=== PATIENT | female | born 1990 | race Caucasian/White ===

== ENCOUNTER 2017-02-05 10:26 | Emergency (ER) | payer SELFPAY ==
[2017-02-05 11:24] VITALS: BP 128/77
--- NOTE | 2017-02-05 12:20 | UC ---
Complaint Female HPI - HPI Summary HPI Summary: 26 female presents with complaints of urinary frequency, burning, urgency, bloating and some lower back discomfort that began 2 days ago however worsened last night. Patient gets UTI's frequently and states she believes that is what is going on. She has been taking OTC Azo and cranberry supplements. Denies any other symptoms such as fever, feeling generally ill and vomiting. No abdominal pain. Denies any other complaints. No noteable hematuria. Normal bowel movements. LMP Jan 23. Denies PMHx. - History Of Current Complaint Chief Complaint: UCGU Stated Complaint: URINARY Time Seen by Provider: 02/05/17 11:38 Hx Obtained From: Patient Hx Last Menstrual Period: 01/24/17 Onset/Duration: Sudden Onset, Lasting Days - 2, Still Present, Worse Since Timing: Constant Severity Initially: Mild Severity Currently: Moderate Pain Intensity: 7 Pain Scale Used: 0-10 Numeric Character: Burning, Cramping Aggravating Factor(s): Urination Alleviating Factor(s): Meds - somewhat with OTC however not anymore Associated Signs And Symptoms: Positive: Back Pain - lower back discomfort. Negative: Fever, Vaginal Bleeding/Discharge, Vaginal Discharge, Nausea, Vomiting (# Of Episodes =) - Allergies/Home Medications Allergies/Adverse Reactions: Allergies Allergy/AdvReac Type Severity Reaction Status Date / Time Penicillins Allergy Rash Verified 02/05/17 11:24 Home Medications: Home Medications Cranberry-Vitamin C [Azo Cranbery Urinary Trac 250-60 mg] 1 cap PO ONCE PRN [History Confirmed 02/05/17] PMH/Surg Hx/FS Hx/Imm Hx - Additional Past Medical History Additional PMH: Denies HTN and DM - Surgical History Surgical History: None - Family History Known Family History: Positive: Diabetes - Social History Alcohol Use: Weekly Alcohol Amount: a beer 3-4 times a week Substance Use Type: None Smoking Status (MU): Current Some Day Smoker Type: Cigarettes Amount Used/How Often: occasional use - Immunization History Most Recent Tetanus Shot: possible 2010 Review of Systems Constitutional: Negative Skin: Negative Respiratory: Negative Cardiovascular: Negative Gastrointestinal: Negative Genitourinary: Dysuria, Frequency, Urgency All Other Systems Reviewed And Are Negative: Yes Physical Exam Triage Information Reviewed: Yes Appearance: Well-Appearing, No Pain Distress, Well-Nourished Vital Signs: Initial Vital Signs Temp 97.8 F 02/05/17 11:21 Pulse 70 02/05/17 11:21 Resp 16 02/05/17 11:21 BP 128/77 02/05/17 11:21 Pulse Ox 100 02/05/17 11:21 Vital Signs Reviewed: Yes Eyes: Positive: Conjunctiva Clear ENT: Positive: Hearing grossly normal Neck: Positive: Supple, Nontender, No Lymphadenopathy Respiratory: Positive: Chest non-tender, Lungs clear, Normal breath sounds, No respiratory distress, No accessory muscle use Cardiovascular: Positive: RRR, No Murmur, Pulses Normal Abdomen Description: Positive: Nontender - some discomfort with suprapubic area palpation, over badder, No Organomegaly, Soft. Negative: CVA Tenderness (R), CVA Tenderness (L), Distended, Guarding Bowel Sounds: Positive: Present Musculoskeletal: Positive: Strength Intact, ROM Intact Neurological: Positive: Alert Skin Exam: Normal Complaint Female Dx - Course Course Of Treatment: urinalysis was sent out for microscopic results and culture due to taking Azo. Will treat based on symptoms strongly suggesting UTI. Placed on macrobid due to having issues with bactrim in the past. Will wait for culture results. Fluids, cranberry supplements. Hygiene. Aware of worsening signs and symptoms to watch out for. Follow up PCP. Did not want pyridium. - Differential Dx/Diagnosis Differential Diagnosis/HQI/PQRI: Sexually Transmitted Disease, Ureteral Stone, Urinary Tract Infection, Other - menstrual cycle Provider Diagnoses: UTI Discharge - Discharge Plan Condition: Stable Disposition: HOME Prescriptions: Nitrofurantoin Monohyd Macro [Macrobid] 100 mg PO BID #14 cap Patient Education Materials: Urinary Tract Infection in Women (ED) Referrals: Non Staff,Doctor [Primary Care Provider] - Additional Instructions: Take prescribed medication as directed until entire dose is finished. You may continue use of cranberry supplements. Drink plenty of fluids. Wipe front to back and continue using hygiene measures. If medication needs to be changed due to culture results you will be notified. IF symptoms worsen such as fever, back pain, feeling of illness or symptoms do not improve please seek medical attention promptly. Follow up with PCP.
[2017-02-05 15:03] LABS: Urine Bacteria Absent (Absent)
--- NOTE | 2017-02-06 19:25 | UC ---
Progress - Progress Note Progress Note: Pt called and states the macrobid causing GI distress and not working. SHe demands cipro but when reviewing her chart its a simple UTI and does not warrant cipro -- will switch to ceph and no anaphylactic reaction from PCN
== END 2017-02-05 12:40 | disposition home or self-care (01) ==
LOC: UCCORT 10:26
DX: N39.0 Urinary tract infection, site not specified (principal); F17.210 Nicotine dependence, cigarettes, uncomplicated; Z88.0 Allergy status to penicillin
CPT/HCPCS: 81003; 99212; G0463